=== PATIENT | female | born 1980 | race Two or more races ===

== ENCOUNTER 2021-03-22 08:20 | Observation (INO) | payer MEDICAID ==
[~2021-03-22] VITALS: Ht 160 cm; Wt 80.7 kg
[2021-03-22] MEDS ORDERED: PREN27TA7 OR (08:24)
== END 2021-03-22 09:38 | disposition home or self-care (01) ==
LOC: LDRP 08:20 → EDBD 08:20
PROVIDERS: ADMIT Obstetrics & Gynecology Obstetrics; ATTEND Obstetrics & Gynecology Obstetrics
DX: O46.92 Antepartum hemorrhage, unspecified, second trimester (principal); O62.9 Abnormality of forces of labor, unspecified; Z3A.27 27 weeks gestation of pregnancy; Z91.040 Latex allergy status
CPT/HCPCS: 59025; 76815; 81002; 94760; G0378; G0379

== ENCOUNTER 2021-05-28 10:33 | Observation (INO) | payer MEDICAID ==
[~2021-05-28 10:33] MED LIST: PREN27TA7 OR
[2021-05-28] MEDS ORDERED: METF-370 PO (11:35)
[2021-05-28 12:43] LABS: Basophils # (auto) 0.1 10 ^3/uL (0-0.2); Basophils % (auto) 1.1 % (0.0-2.0); Eosinophils # (auto) 0.1 10 ^3/uL (0-0.8); Eosinophils % (auto) 1.1 % (0.0-7.0); Hematocrit 36.5 % (36.0-46.0); Hemoglobin 12.4 g/dL (12.2-16.2); Lymphocytes # (auto) 1.3 10 ^3/uL (0.4-5.4); Lymphocytes % (auto) 19.8 % (10.0-50.0); Mean Corpuscular Hemoglobin 29.6 pg (28.0-32.0); Monocytes # (auto) 0.6 10 ^3/uL (0-1.3); Monocytes % (auto) 8.5 % (0.0-12.0); Neutrophils # (auto) 4.6 10 ^3/uL (1.6-8.6); Neutrophils % (auto) 69.5 % (37.0-80.0); Nucleated Red Blood Cells % 0.1 %; Red Cell Distribution Width 13.5 % (11.8-14.3); White Blood Cell 6.7 10^3/uL (4.4-10.8)
[2021-05-29 08:06] LABS: RPR Non Reactive (Non Reactive)
== END 2021-05-28 12:27 | disposition home or self-care (01) ==
LOC: LDRP 10:33
PROVIDERS: ADMIT Obstetrics & Gynecology; ATTEND Obstetrics & Gynecology
DX: O98.513 Other viral diseases complicating pregnancy, third trimester (principal); U07.1 COVID-19; O62.9 Abnormality of forces of labor, unspecified; O24.419 Gestational diabetes mellitus in pregnancy, unspecified control; Z3A.36 36 weeks gestation of pregnancy; Z98.891 History of uterine scar from previous surgery
CPT/HCPCS: 36415; 59025; 76818; 81002; 82948; 82962; 84112; 85025; 86592; 94760; G0378; G0379

== ENCOUNTER 2021-06-01 07:48 | Observation (INO) | payer MEDICAID ==
[~2021-06-01 07:48] MED LIST changes: +METF-370 PO
[2021-06-01] MEDS ORDERED: GLYB1.257 PO (08:47)
== END 2021-06-01 10:20 | disposition home or self-care (01) ==
LOC: LDRP 08:25
PROVIDERS: ADMIT Obstetrics & Gynecology; ATTEND Obstetrics & Gynecology
DX: O98.513 Other viral diseases complicating pregnancy, third trimester (principal); U07.1 COVID-19; O24.419 Gestational diabetes mellitus in pregnancy, unspecified control; Z3A.37 37 weeks gestation of pregnancy
CPT/HCPCS: 59025; 76818; 81002; 82948; 82962; 94760; G0378; G0379

== ENCOUNTER 2021-06-04 08:10 | Observation (INO) | payer MEDICAID ==
[~2021-06-04] VITALS: Ht 160 cm; Wt 84.4 kg
[~2021-06-04 08:10] MED LIST changes: +GLYB1.257 PO
== END 2021-06-04 11:10 | disposition home or self-care (01) ==
LOC: LDRP 09:33
PROVIDERS: ADMIT Obstetrics & Gynecology; ATTEND Obstetrics & Gynecology
DX: O98.53 Other viral diseases complicating the puerperium (principal); U07.1 COVID-19; O24.419 Gestational diabetes mellitus in pregnancy, unspecified control; Z3A.37 37 weeks gestation of pregnancy
CPT/HCPCS: 59025; 76818; 81002; 82948; G0378

== ENCOUNTER 2021-06-08 16:13 | Observation (INO) | payer MEDICAID ==
[~2021-06-08] VITALS: Ht 160 cm; Wt 72.6 kg
[2021-06-08] MEDS: TERBUTALINE SULFATE 1 MG/ML 1ML VIAL SC SCH ×2 (17:56→18:05)
[2021-06-08] MEDS ORDERED: NIFEdipine 10 MG CAP PO ONE (18:30)
[2021-06-08 18:45] LABS: Basophils # (auto) 0.1 10 ^3/uL (0-0.2); Eosinophils # (auto) 0.1 10 ^3/uL (0-0.8); Eosinophils % (auto) 0.9 % (0.0-7.0); Hematocrit 38.1 % (36.0-46.0); Hemoglobin 12.8 g/dL (12.2-16.2); Lymphocytes % (auto) 31.2 % (10.0-50.0); Mean Corpuscular Hemoglobin 29.5 pg (28.0-32.0); Mean Corpuscular Hgb Conc. 33.6 g/dL (32.0-36.0); Mean Corpuscular Volume 87.8 fL (80.0-100.0); Monocytes # (auto) 0.7 10 ^3/uL (0-1.3); Monocytes % (auto) 7.3 % (0.0-12.0); Neutrophils # (auto) 5.7 10 ^3/uL (1.6-8.6); Neutrophils % (auto) 59.6 % (37.0-80.0); Nucleated Red Blood Cells % 0.1 %; Red Blood Cells 4.33 10^6/uL (4.0-5.20); Red Cell Distribution Width 13.5 % (11.8-14.3); White Blood Cell 9.6 10^3/uL (4.4-10.8)
[2021-06-08 18:57] LABS: INR 0.92 (0.9-1.15); Partial Thromboplastin Time 23.9 sec (23.6-33.0)
[2021-06-08 19:07] LABS: Albumin 2.7 g/dL (3.4-5.0); Calcium 9.4 mg/dL (8.5-10.1); Potassium 3.6 mmol/L (3.5-5.1)
[2021-06-08 19:10] LABS: Bilirubin, Total 0.5 mg/dL (0.2-1.0); Total Protein 6.9 g/dL (6.4-8.2)
[2021-06-08] MEDS ORDERED: LACTATED RINGER'S 1,000 ML IV STA (21:17)
[2021-06-10 07:06] LABS: RPR Non Reactive (Non Reactive)
== END 2021-06-08 20:08 | disposition home or self-care (01) ==
LOC: LDRP 16:13
PROVIDERS: ADMIT Obstetrics & Gynecology; ATTEND Obstetrics & Gynecology
DX: O24.415 Gestational diabetes mellitus in pregnancy, controlled by oral hypoglycemic drugs (principal); O62.9 Abnormality of forces of labor, unspecified; Z3A.38 38 weeks gestation of pregnancy; Z79.899 Other long term (current) drug therapy
CPT/HCPCS: 36415; 59025; 76818; 80053; 81002; 82948; 82962; 85025; 85610; 85730; 86592; 86850; 86900; 86901; 96360; 96372; G0378; J3105

== ENCOUNTER 2021-06-11 11:33 | Observation (INO) | payer MEDICAID | END 2021-06-11 14:45 | disposition home or self-care (01) | LOC: LDRP 12:58 | PROVIDERS: ADMIT Obstetrics & Gynecology; ATTEND Obstetrics & Gynecology | DX: O09.523 Supervision of elderly multigravida, third trimester (principal); O24.419 Gestational diabetes mellitus in pregnancy, unspecified control; Z3A.40 40 weeks gestation of pregnancy | CPT/HCPCS: 59025; 76818; 81002; 82962; 94760; G0378; G0379 ==

== ENCOUNTER 2021-06-14 10:30 | Observation (INO) | payer MEDICAID ==
[2021-06-14 11:36] LABS: Basophils # (auto) 0.1 10 ^3/uL (0-0.2); Basophils % (auto) 0.6 % (0.0-2.0); Eosinophils # (auto) 0.1 10 ^3/uL (0-0.8); Hematocrit 36.6 % (36.0-46.0); Hemoglobin 12.3 g/dL (12.2-16.2); Lymphocytes # (auto) 1.7 10 ^3/uL (0.4-5.4); Lymphocytes % (auto) 18.6 % (10.0-50.0); Mean Corpuscular Hemoglobin 29.5 pg (28.0-32.0); Mean Corpuscular Hgb Conc. 33.7 g/dL (32.0-36.0); Mean Corpuscular Volume 87.6 fL (80.0-100.0); Monocytes # (auto) 0.7 10 ^3/uL (0-1.3); Monocytes % (auto) 7.4 % (0.0-12.0); Neutrophils # (auto) 6.7 10 ^3/uL (1.6-8.6); Neutrophils % (auto) 72.4 % (37.0-80.0); Red Blood Cells 4.18 10^6/uL (4.0-5.20); Red Cell Distribution Width 13.8 % (11.8-14.3); White Blood Cell 9.3 10^3/uL (4.4-10.8)
[2021-06-14 11:53] LABS: INR 0.91 (0.9-1.15); Partial Thromboplastin Time 24.6 sec (23.6-33.0)
[2021-06-14 12:10] LABS: Albumin 2.5 g/dL (3.4-5.0); Calcium 8.5 mg/dL (8.5-10.1); Potassium 4.2 mmol/L (3.5-5.1)
[2021-06-14 12:12] LABS: BUN/Creatinine Ratio 9.9
[2021-06-14 12:14] LABS: Bilirubin, Total 0.5 mg/dL (0.2-1.0); Total Protein 6.3 g/dL (6.4-8.2)
[2021-06-14 12:17] LABS: Urine Bacteria NONE SEEN /hpf (None Seen); Urine Blood Negative /uL (Negative); Urine Specific Gravity 1.009 (1.001-1.035); Urine WBC 16 /hpf (0 - 5)
[2021-06-14 12:18] LABS: Alcohol, Urine < 3.0 mg/dL (0-10); Amphetamine Screen, Urine NEGATIVE (NEGATIVE); Barbiturate Scree,Urine NEGATIVE (NEGATIVE); Benzodiazephine Screen, Urine NEGATIVE (NEGATIVE); Cannabinoid Screen, Urine NEGATIVE (NEGATIVE); Cocaine Screen, Urine NEGATIVE (NEGATIVE); Opiate Scree,Urine NEGATIVE (NEGATIVE); Phencyclidine Screen, Urine NEGATIVE (NEGATIVE)
[2021-06-15 07:06] LABS: RPR Non Reactive (Non Reactive)
== END 2021-06-14 12:13 | disposition home or self-care (01) ==
LOC: LDRP 10:30
PROVIDERS: ADMIT Obstetrics & Gynecology Obstetrics; ATTEND Obstetrics & Gynecology Obstetrics
DX: O98.53 Other viral diseases complicating the puerperium (principal); U07.1 COVID-19; O24.419 Gestational diabetes mellitus in pregnancy, unspecified control; O09.523 Supervision of elderly multigravida, third trimester; Z3A.38 38 weeks gestation of pregnancy; Z98.891 History of uterine scar from previous surgery; Z79.899 Other long term (current) drug therapy
CPT/HCPCS: 36415; 59025; 76818; 80053; 80307; 81001; 81002; 82948; 82962; 85025; 85610; 85730; 86592; 86850; 86900; 86901; 94760; G0378; G0379; U0003

== ENCOUNTER 2021-06-16 04:05 | Inpatient (IN) | payer MEDICAID ==
[2021-06-16] VITALS (14 sets, daily range): BP systolic 104–126; BP diastolic 59–82
[~2021-06-16] VITALS: Ht 160 cm; Wt 84.4 kg
[2021-06-16] MEDS ORDERED: LACTATED RINGER'S 1,000 ML IV ONE (04:30)
[2021-06-16] MEDS ORDERED: ceFAZolin 1GM/50ML 50 ML IV ONE ×3 (04:30→15:00)
[2021-06-16] MEDS ORDERED: LACTATED RINGER'S 1,000 ML IV SCH (04:30)
[2021-06-16] MEDS ORDERED: ACCU-CHEK COMFORT CURVE STRIP VI ONE (04:45)
[2021-06-16 05:06] LABS: Basophils # (auto) 0.1 10 ^3/uL (0-0.2); Basophils % (auto) 0.7 % (0.0-2.0); Eosinophils # (auto) 0.1 10 ^3/uL (0-0.8); Eosinophils % (auto) 1.8 % (0.0-7.0); Hematocrit 35.4 % (36.0-46.0); Hemoglobin 11.9 g/dL (12.2-16.2); Lymphocytes # (auto) 1.9 10 ^3/uL (0.4-5.4); Lymphocytes % (auto) 23.2 % (10.0-50.0); Mean Corpuscular Hemoglobin 29.4 pg (28.0-32.0); Mean Corpuscular Hgb Conc. 33.7 g/dL (32.0-36.0); Mean Corpuscular Volume 87.3 fL (80.0-100.0); Monocytes # (auto) 0.7 10 ^3/uL (0-1.3); Monocytes % (auto) 8.7 % (0.0-12.0); Neutrophils # (auto) 5.2 10 ^3/uL (1.6-8.6); Neutrophils % (auto) 65.6 % (37.0-80.0); Nucleated Red Blood Cells % 0.1 %; Red Blood Cells 4.05 10^6/uL (4.0-5.20); Red Cell Distribution Width 13.7 % (11.8-14.3)
[2021-06-16 05:19] LABS: INR 0.92 (0.9-1.15); Partial Thromboplastin Time 24.7 sec (23.6-33.0)
[2021-06-16 05:21] LABS: Albumin 2.5 g/dL (3.4-5.0); Calcium 8.2 mg/dL (8.5-10.1); Potassium 3.9 mmol/L (3.5-5.1)
[2021-06-16 05:24] LABS: BUN/Creatinine Ratio 12.3; Bilirubin, Total 0.4 mg/dL (0.2-1.0); Total Protein 6.3 g/dL (6.4-8.2)
[2021-06-16 05:41] LABS: Urine Bacteria NONE SEEN /hpf (None Seen); Urine Blood Negative /uL (Negative); Urine Specific Gravity 1.007 (1.001-1.035); Urine WBC 7 /hpf (0 - 5)
[2021-06-16] MEDS ORDERED: TERBUTALINE SULFATE 1 MG/ML 1ML VIAL SC ONE (05:45)
[2021-06-16 05:54] LABS: Amphetamine Screen, Urine NEGATIVE (NEGATIVE); Barbiturate Scree,Urine NEGATIVE (NEGATIVE); Benzodiazephine Screen, Urine NEGATIVE (NEGATIVE); Cannabinoid Screen, Urine NEGATIVE (NEGATIVE)
[2021-06-16 05:57] LABS: Alcohol, Urine < 3.0 mg/dL (0-10); Cocaine Screen, Urine NEGATIVE (NEGATIVE); Opiate Scree,Urine NEGATIVE (NEGATIVE); Phencyclidine Screen, Urine NEGATIVE (NEGATIVE)
[2021-06-16] MEDS ORDERED: ROCURONIUM 10MG/ML 10ML VIAL IV ONE (06:39)
[2021-06-16] MEDS ORDERED: TETRACAINE 1% INJ 2 ML VIAL IJ ONE (06:39)
[2021-06-16] MEDS ORDERED: SUCCINYLCHOLINE CHLORIDE 20 MG/ML 10ML VIAL IV ONE (06:39)
[2021-06-16] MEDS ORDERED: fentaNYL CITRATE 100 MCG/2 ML VL ONE (07:02)
[2021-06-16] MEDS ORDERED: ONDANSETRON HCL 4 MG/2 ML VIAL ONE (07:02)
[2021-06-16] MEDS ORDERED: SODIUM CHLORIDE LOCK 10 ML ONE (07:02)
[2021-06-16] MEDS ORDERED: BUPIVACAINE/DEXTROSE MPF 0.75% 2 ML AMP IT ONE (07:02)
[2021-06-16] MEDS ORDERED: MIDAZOLAM HCL 2MG/2ML 2ml VIAL (1mg/ml) ONE ×2 (07:02→08:25)
[2021-06-16] MEDS ORDERED: EPINEPHrine HCL 1 MG/1 ML AMP ONE (07:02)
[2021-06-16] MEDS ORDERED: oxyTOCIN 10 UNIT/ML 10ML VIAL ONE ×2 (07:02→07:06)
[2021-06-16] MEDS ORDERED: MORPHINE SULF PF 2 MG/2 ML SYRG ONE (07:04)
[2021-06-16] MEDS ORDERED: KETAMINE HCL 10 ML ONE (09:02)
[2021-06-16] MEDS ORDERED: KETOROLAC TROMETH 30 MG/ML 1ML VIAL IV PRN (10:15)
[2021-06-16] MEDS ORDERED: ePHEDrine SULFATE 50 MG/ML AMP IV PRN (10:15)
[2021-06-16] MEDS ORDERED: GUM (CHEWING) 1 GUM CHEW CHEW ONE (10:15)
[2021-06-16] MEDS ORDERED: ACETAMINOPHEN IV 1000 MG/100ML (10MG/ML) IV PRN ×2 (10:15→14:30)
[2021-06-16] MEDS ORDERED: ONDANSETRON HCL 4 MG/2 ML VIAL IV PRN (10:15)
[2021-06-16] MEDS: DOCUSATE SOD 100 MG CAP PO SCH (22:00)
[2021-06-17] VITALS (13 sets, daily range): BP systolic 95–123; BP diastolic 60–85
[2021-06-17] MEDS: IBUPROFEN 600 MG TAB PO SCH ×3 (06:00→18:00)
[2021-06-17] MEDS ORDERED: HYDROcodone-ACET 5/325MG TAB PO PRN (06:00)
[2021-06-17 07:03] LABS: Basophils # (auto) 0 10 ^3/uL (0-0.2); Basophils % (auto) 0.2 % (0.0-2.0); Eosinophils # (auto) 0 10 ^3/uL (0-0.8); Eosinophils % (auto) 0.3 % (0.0-7.0); Hematocrit 33.7 % (36.0-46.0); Hemoglobin 11.2 g/dL (12.2-16.2); Lymphocytes % (auto) 8.9 % (10.0-50.0); Mean Corpuscular Hemoglobin 29.4 pg (28.0-32.0); Mean Corpuscular Hgb Conc. 33.4 g/dL (32.0-36.0); Mean Corpuscular Volume 88.3 fL (80.0-100.0); Monocytes # (auto) 0.8 10 ^3/uL (0-1.3); Monocytes % (auto) 7.2 % (0.0-12.0); Neutrophils # (auto) 9.7 10 ^3/uL (1.6-8.6); Neutrophils % (auto) 83.4 % (37.0-80.0); Red Blood Cells 3.81 10^6/uL (4.0-5.20); Red Cell Distribution Width 13.6 % (11.8-14.3); White Blood Cell 11.7 10^3/uL (4.4-10.8)
[2021-06-17 07:06] LABS: RPR Non Reactive (Non Reactive)
[2021-06-17] MEDS: HYDROcodone-ACET 5/325MG TAB PO PRN ×2 (15:19→23:07)
[2021-06-17] MEDS: DOCUSATE SOD 100 MG CAP PO SCH (21:50)
[2021-06-18 03:00] VITALS: BP 108/75
[2021-06-18] MEDS: IBUPROFEN 600 MG TAB PO SCH ×4 (05:46→20:09)
[2021-06-18] MEDS: HYDROcodone-ACET 5/325MG TAB PO PRN ×4 (06:52→23:15)
[2021-06-18 07:30] VITALS: BP 127/87
[2021-06-18] MEDS: SIMETHICONE 80 MG CHEWABLE TABLET PO PRN ×3 (10:39→23:15)
[2021-06-18 10:46] VITALS: BP 109/72
[2021-06-18 15:15] VITALS: BP 110/72
[2021-06-18 19:25] VITALS: BP 106/80
[2021-06-18] MEDS ORDERED: BISACODYL 10 MG RECT SUPP PR ONE (21:00)
[2021-06-18] MEDS: DOCUSATE SOD 100 MG CAP PO SCH (22:29)
[2021-06-18 23:05] VITALS: BP 110/73
[2021-06-19 03:00] VITALS: BP 108/77
[2021-06-19 06:30] VITALS: BP 105/77
[2021-06-19] MEDS: IBUPROFEN 600 MG TAB PO SCH ×2 (07:05)
[2021-06-19] MEDS ORDERED: HYDR-4902 PO (08:25)
[2021-06-19] MEDS ORDERED: DOCU-94 PO (08:25)
[2021-06-19] MEDS ORDERED: IBUP800T27 PO (08:25)
[2021-06-19] MEDS: HYDROcodone-ACET 5/325MG TAB PO PRN (09:52)
[2021-06-19 11:30] VITALS: BP 106/77
== END 2021-06-19 11:50 | disposition home or self-care (01) | DRG 539 ==
LOC: LDRP 04:05
PROVIDERS: ADMIT Obstetrics & Gynecology; ATTEND Obstetrics & Gynecology
PROC: 0UL70CZ Occlusion of Bilateral Fallopian Tubes with Extraluminal Device, Open Approach (ICD-10-PCS; 2021-06-16)
PROC: 10D00Z1 Extraction of Products of Conception, Low, Open Approach (ICD-10-PCS; principal; 2021-06-16 08:03)
DX: O24.425 Gestational diabetes mellitus in childbirth, controlled by oral hypoglycemic drugs (principal); O34.211 Maternal care for low transverse scar from previous cesarean delivery; Z20.822 Contact with and (suspected) exposure to COVID-19; Z30.2 Encounter for sterilization; Z37.0 Single live birth; Z3A.39 39 weeks gestation of pregnancy
CPT/HCPCS: 36415; 59025; 80053; 80307; 81001; 81002; 82947; 82962; 85025; 85610; 85730; 86592; 86850; 86900; 86901; 87426; 94760; 94762; 96360; 96361; 96365; 96366; 96374; G0378; J0131; J0171; J0330; J0690; J1885; J2250; J2405; J2590